=== PATIENT | female | born 1995 | race Caucasian/White ===

== ENCOUNTER 2021-05-11 07:58 | Outpatient (REF) | payer MEDICAID, SELFPAY | END 2021-05-11 07:59 | disposition home or self-care (01) | LOC: HO.HMGCLDS 07:58 | PROVIDERS: Visit Provider Internal Medicine | DX: Z20.822 Contact with and (suspected) exposure to COVID-19 (principal) | CPT/HCPCS: C9803; U0003; U0005 ==